=== PATIENT | female | born 1965 | race Caucasian/White ===

== ENCOUNTER 2021-07-04 14:34 | Emergency (ER) | payer OTHER, SELFPAY ==
[2021-07-04 14:46] VITALS: BP 136/56; PULSE 75; RESP 20; TEMP 36.2; O2SAT 100
[2021-07-04 14:52] VITALS: BP 136/56; PULSE 75; RESP 20; TEMP 36.2; O2SAT 100
--- NOTE | 2021-07-04 14:52 | ED.URI ---
HPI - URI/Sore Throat General Stated Complaint: cough,fatigue,breathing prob Time Seen by Provider: 07/04/21 14:53 Source: patient Limitations: no limitations History of Present Illness HPI Narrative: Patient presents with a 2-week history of sinus congestion and cough. No patient denies any shortness of breath no chest pain no fever. Patient has tried several [id number] medications for her cough with little relief in her symptoms. MD elicited complaint: cough and nasal congestion Related Data Home Medications Medication Instructions Recorded Confirmed aspirin [Aspirin Low Dose] 81 mg PO DAILY 06/25/19 07/04/21 clopidogrel 75 mg PO DAILY 06/25/19 07/04/21 gabapentin 300 mg PO BID 06/25/19 07/04/21 insulin glargine [Basaglar KwikPen 30 unit SUBCUT DAILY 06/25/19 07/04/21 U-100 Insulin] insulin lispro [Admelog SoloStar 12 unit SUBCUT QACBREAK 06/25/19 07/04/21 U-100 Insulin] insulin lispro [Admelog SoloStar 12 unit SUBCUT QACDINNER 06/25/19 07/04/21 U-100 Insulin] insulin lispro [Admelog SoloStar 14 unit SUBCUT QACLUNCH 06/25/19 07/04/21 U-100 Insulin] losartan 25 mg PO DAILY 06/25/19 07/04/21 meloxicam 15 mg PO DAILY PRN 06/25/19 07/04/21 metoclopramide HCl 10 mg PO BID PRN 06/25/19 07/04/21 metoprolol tartrate 50 mg PO DAILY 06/25/19 07/04/21 mirtazapine 15 mg PO HS 06/25/19 07/04/21 omeprazole 20 mg PO BID 06/25/19 07/04/21 pravastatin 40 mg PO DAILY 06/25/19 07/04/21 venlafaxine 75 mg PO BID 06/25/19 07/04/21 atorvastatin 80 mg PO DAILY 07/04/21 07/04/21 nicotine [Nicotrol] See Rx Instructions .ROUTE .COMPLEX 07/04/21 07/04/21 Allergies Allergy/AdvReac Type Severity Reaction Status Date / Time No Known Allergies Allergy Verified 07/04/21 14:43 Review of Systems Review of Systems: CONSTITUTIONAL: Denies chills, or sweats. Reports fever and generalized body aches EYES: Denies visual changes, redness, or discharge. ENT: Denies otalgia. Reports nasal congestion runny nose and sore throat CARDIOVASCULAR: Denies chest pain, palpitations, or edema. RESPIRATORY: Denies dyspnea. Reports occasional cough GASTROINTESTINAL: Denies abdominal pain, nausea, vomiting, or diarrhea. GENITOURINARY: Denies dysuria or hematuria. SKIN: Denies rash or itching. MUSCULOSKELETAL: Denies back pain, joint pain, or myalgia. Reports generalized body aches NEUROLOGIC: Denies headache, numbness, or weakness. PSYCHIATRIC: Denies anxiety or depression. [facility] Comments At time of signature, agree with nursing past medical, surgical, social and family history. There is no relevant family history pertinent to the presenting complaint Exam Narrative: The patient is a well-developed, well-nourished in no acute distress. SKIN: Skin is warm and dry without erythema, swelling or exudate. There is good turgor. No tenting. HEAD: Atraumatic. Normocephalic. No temporal or scalp tenderness. EYES: Moist and bright. Sclera and conjunctivae normal. No discharge. PERRLA. Extraocular motions intact. Gross visual acuity intact. EARS: Pinna is normal shape and contour. Clear external auditory canals. TM pearly banks with good cone of light, no erythema or suppuration. Bilateral cerumen noted no gross hearing deficit. NOSE: pink, moist mucosa with good air movement. Clear rhinorrhea without nasal flaring. Septum midline. Mouth: moist mucous membranes. THROAT; mild erythema noted to posterior oropharynx with moderate postnasal drainage. Without exudate or ulceration.. Uvula midline. Normal movement of soft palate. NECK: Supple and nontender with full range of motion without discomfort. No meningeal signs. LUNGS: Equal and bilateral breath sounds without wheezes, rales or rhonchi. CHEST: The chest wall is without retractions or use of accessory muscles. HEART: Has a regular rate and rhythm without murmur, gallops, click or rub. ABDOMEN: Soft, nontender with positive active bowel sounds. No rebound tenderness. EXTREMITIES: Without cyanosis, clubbing o
== END 2021-07-04 15:05 | disposition home or self-care (01) ==
PROVIDERS: Emergency Provider Nurse Practitioner Family
DX: J01.00 Acute maxillary sinusitis, unspecified (principal); R09.82 Postnasal drip; E11.40 Type 2 diabetes mellitus with diabetic neuropathy, unspecified; E78.00 Pure hypercholesterolemia, unspecified; I10 Essential (primary) hypertension; Z95.5 Presence of coronary angioplasty implant and graft; K21.9 Gastro-esophageal reflux disease without esophagitis; F32.9 Major depressive disorder, single episode, unspecified
CPT/HCPCS: 99213; G0463